=== PATIENT | female | born 1975 ===

== ENCOUNTER 2017-05-05 22:20 | Emergency (ER) | payer MEDICAID ==
[2017-05-05 23:00] VITALS: RESP 22
--- NOTE | 2017-05-05 23:01 | C.PDOC ---
History Of Present Illness 42 year old female presents to the ED c/o high blood pressure that she noticed at home associated with nose bleed. Patient denies headache, trauma, injury, fall, blurry vision, CP, SOB. Time Seen by Provider: 05/05/17 23:03 Chief Complaint (Nursing): High Blood Pressure History Per: Patient History/Exam Limitations: no limitations Onset/Duration Of Symptoms: Days Current Symptoms Are (Timing): Still Present Quality Of Symptoms: Asymptomatic Recent travel outside of the [place]: No Additional History Per: Patient Past Medical History Reviewed: Historical Data, Nursing Documentation, Vital Signs Vital Signs: Last Vital Signs Temp 98.1 F 05/05/17 22:29 Pulse 85 05/05/17 22:59 Resp 22 05/05/17 22:59 BP 129/87 05/05/17 22:59 Pulse Ox 98 05/05/17 23:05 - Medical History PMH: HTN Surgical History: No Surg Hx Family History: States: Unknown Family Hx - Social History Hx Alcohol Use: No Hx Substance Use: No - Immunization History Hx Tetanus Toxoid Vaccination: No Hx Influenza Vaccination: No Hx Pneumococcal Vaccination: No Review Of Systems Constitutional: Negative for: Fever, Chills ENT: Positive for: Nose Discharge Cardiovascular: Negative for: Chest Pain Respiratory: Negative for: Cough, Shortness of Breath Gastrointestinal: Negative for: Nausea, Vomiting, Abdominal Pain Skin: Negative for: Rash Neurological: Negative for: Weakness, Numbness, Headache Physical Exam - Physical Exam Appears: Non-toxic, No Acute Distress Skin: Normal Color, Warm, Dry Head: Atraumatic, Normacephalic Eye(s): bilateral: Normal Inspection Nose: No Discharge, No Epistaxis Oral Mucosa: Moist Neck: Normal ROM, Supple Chest: Symmetrical Cardiovascular: Rhythm Regular, No Murmur Respiratory: Normal Breath Sounds, No Rales, No Rhonchi, No Wheezing Gastrointestinal/Abdominal: Soft, No Tenderness, No Guarding, No Rebound Extremity: Normal ROM, No Tenderness, No Swelling Neurological/Psych: Oriented x3, Normal Speech Gait: Steady ED Course And Treatment - Laboratory Results Result Diagrams: 05/05/17 23:17 05/05/17 23:17 O2 Sat by Pulse Oximetry: 98 (On RA) Pulse Ox Interpretation: Normal Medical Decision Making Medical Decision Making: Impression: high blood pressure Plan: * Labs Disposition Counseled Patient/Family Regarding: Diagnosis - Disposition Referrals: [facility] [Outside] Disposition: HOME/ ROUTINE Disposition Time: 23:55 Condition: STABLE Instructions: Nosebleeds, High Blood Pressure in Adults, Low Salt Diet Forms: [facility] (Mohawk) - POA Present On Arrival: None - Clinical Impression Clinical Impression: Epistaxis not due to trauma, Hypertension - Scribe Statement The provider has reviewed the documentation as recorded by the Scribe Connor Castro All medical record entries made by the Scribe were at my direction and personally dictated by me. I have reviewed the chart and agree that the record accurately reflects my personal performance of the history, physical exam, medical decision making, and the department course for this patient. I have also personally directed, reviewed, and agree with the discharge instructions and disposition.
[2017-05-05 23:20] LABS: HEMOGLOBIN 13.1 g/dL (11.0-16.0); MEAN CELL VOLUME 88.3 fL (81.0-99.0); MEAN CORPUSCULAR HEMOGLOBIN 29.6 pg (27.0-31.0); MEAN CORPUSCULAR HGB CONC 33.5 g/dL (33.0-37.0); MEAN PLATELET VOLUME 9.9 fL (7.2-11.7); RBC 4.42 Mil/uL (3.80-5.20); RED CELL DISTRIBUTION WIDTH 13.4 % (11.5-14.5); WHITE BLOOD COUNT 8.6 K/uL (4.8-10.8)
[2017-05-05 23:28] LABS: PROTHROMBIN TIME 11.1 SECONDS (9.7-12.2)
[2017-05-05 23:32] LABS: ALB/GLOB RATIO 1.3 (1.0-2.1); ALBUMIN 3.9 g/dL (3.5-5.0); ALT/SGPT 24 U/L (9-52); AST/SGOT 19 U/L (14-36); BLOOD UREA NITROGEN 13 mg/dL (7-17); CALCIUM 8.7 mg/dl (8.6-10.4); GFR AFRICAN-AMERICAN > 60; GFR NON-AFRICAN AMERICAN > 60
[2017-05-06 00:11] VITALS: BP 134/89; PULSE 77; TEMP 97.9; O2SAT 100
== END 2017-05-06 00:11 | disposition home or self-care (01) ==
LOC: C.ER 22:20
DX: I10 Essential (primary) hypertension (principal); R04.0 Epistaxis

== ENCOUNTER 2017-07-14 16:44 | Emergency (ER) | payer MEDICAID ==
[2017-07-14 18:21] LABS: BASO % 0.1 % (0.0-2.0); EOS % 0.2 % (0.0-4.0); HEMOGLOBIN 14.1 g/dL (11.0-16.0); LYMPH # 1.1 K/uL (1.0-4.3); LYMPH % 13.6 % (20.0-40.0); MEAN CELL VOLUME 88.3 fL (81.0-99.0); MEAN CORPUSCULAR HEMOGLOBIN 30.1 pg (27.0-31.0); MEAN CORPUSCULAR HGB CONC 34.1 g/dL (33.0-37.0); MEAN PLATELET VOLUME 9.8 fL (7.2-11.7); MONO # 0.3 K/uL (0.0-0.8); MONO % 3.8 % (0.0-10.0); NEUT # 6.8 K/uL (1.8-7.0); NEUT % 82.3 % (50.0-75.0); NRBC % 0.1 % (0.0-2.0); RBC 4.69 Mil/uL (3.80-5.20); RED CELL DISTRIBUTION WIDTH 13.4 % (11.5-14.5); WHITE BLOOD COUNT 8.2 K/uL (4.8-10.8)
[2017-07-14 18:33] LABS: ALB/GLOB RATIO 1.2 (1.0-2.1); ALBUMIN 4.2 g/dL (3.5-5.0); ALT/SGPT 26 U/L (9-52); AST/SGOT 23 U/L (14-36); BLOOD UREA NITROGEN 11 mg/dL (7-17); GFR AFRICAN-AMERICAN > 60; GFR NON-AFRICAN AMERICAN > 60
[2017-07-14] MEDS ORDERED: Sodium Chloride 0.9% 1,000 ML IV ONE (19:13)
--- NOTE | 2017-07-14 19:14 | C.PDOC ---
History Of Present Illness 42 year old female presents to the ER with a complaint of abdominal pain, nausea , and vomiting since yesterday, associated with diarrhea today. Denies fever or chills. Chief Complaint (Nursing): Abdominal Pain History Per: Patient History/Exam Limitations: no limitations Onset/Duration Of Symptoms: Days Current Symptoms Are (Timing): Still Present Location Of Pain/Discomfort: Diffuse Radiation Of Pain To:: None Quality Of Discomfort: Unable To Describe Associated Symptoms: Nausea, Vomiting, Diarrhea. denies: Fever, Chills Exacerbating Factors: None Alleviating Factors: None Recent travel outside of the [place]: No Abnormal Vaginal Bleeding: No Past Medical History Reviewed: Historical Data, Nursing Documentation, Vital Signs Vital Signs: Last Vital Signs Temp 98 F 07/14/17 20:45 Pulse 78 07/14/17 20:45 Resp 18 07/14/17 20:45 BP 105/74 07/14/17 20:45 Pulse Ox 100 07/14/17 21:18 - Medical History PMH: HTN Family History: States: Unknown Family Hx - Social History Hx Alcohol Use: No Hx Substance Use: No - Immunization History Hx Tetanus Toxoid Vaccination: No Hx Influenza Vaccination: No Hx Pneumococcal Vaccination: No Review Of Systems Constitutional: Negative for: Fever, Chills Cardiovascular: Negative for: Chest Pain, Palpitations Respiratory: Negative for: Cough Gastrointestinal: Positive for: Nausea, Vomiting, Abdominal Pain, Diarrhea Physical Exam - Physical Exam Appears: Non-toxic Skin: Normal Color, Warm, Dry Head: Atraumatic, Normacephalic Eye(s): bilateral: Normal Inspection Oral Mucosa: Moist Chest: Symmetrical, No Tenderness Cardiovascular: Rhythm Regular Respiratory: Normal Breath Sounds, No Rales, No Rhonchi, No Wheezing Gastrointestinal/Abdominal: Soft, Tenderness (Diffuse), No Guarding, No Rebound Back: No CVA Tenderness Neurological/Psych: Oriented x3, Normal Speech ED Course And Treatment - Laboratory Results Result Diagrams: 07/14/17 18:14 07/14/17 18:14 O2 Sat by Pulse Oximetry: 100 (Room air) Pulse Ox Interpretation: Normal Progress Note: Blood work and urinalysis ordered. Bentyl, reglan, toradol, and IV fluids administered. Disposition Counseled Patient/Family Regarding: Diagnosis - Disposition Referrals: [facility] [Outside] Disposition: HOME/ ROUTINE Disposition Time: 21:17 Condition: STABLE Prescriptions: Dicyclomine [Dicyclomine HCl] 10 mg PO QID #14 cap Ondansetron ODT [Zofran ODT] 1 odt PO BID PRN #6 odt PRN Reason: Nausea/Vomiting Instructions: Acute Abdomen (Belly Pain), Nausea and Vomiting, Adult (DC) Forms: [facility] (Romanian), Gen Discharge Inst Armenian Print Language: BRITISH - POA Present On Arrival: None - Clinical Impression Clinical Impression: Abdominal pain, Nausea, Vomiting, Diarrhea, Enteritis - Scribe Statement The provider has reviewed the documentation as recorded by the Scribluisa Vieyra All medical record entries made by the Riveribluisa were at my direction and personally dictated by me. I have reviewed the chart and agree that the record accurately reflects my personal performance of the history, physical exam, medical decision making, and the department course for this patient. I have also personally directed, reviewed, and agree with the discharge instructions and disposition.
--- NOTE | 2017-07-14 19:15 | C.PDOC ---
Chief Complaint (Nursing): Abdominal Pain Past Medical History Vital Signs: Last Vital Signs Temp 98.2 F 07/14/17 17:05 Pulse 93 H 07/14/17 17:05 Resp 16 07/14/17 17:05 BP 135/85 07/14/17 17:05 Pulse Ox 100 07/14/17 17:05 - Medical History PMH: HTN Family History: States: Unknown Family Hx - Social History Hx Alcohol Use: No Hx Substance Use: No - Immunization History Hx Tetanus Toxoid Vaccination: No Hx Influenza Vaccination: No Hx Pneumococcal Vaccination: No ED Course And Treatment - Laboratory Results Result Diagrams: 07/14/17 18:14 07/14/17 18:14 O2 Sat by Pulse Oximetry: 100 Disposition - Disposition
[2017-07-14 19:35] VITALS: RESP 18
[2017-07-14 20:25] LABS: HCG,QUALITATIVE URINE NEGATIVE (NEGATIVE); SQUAMOUS EPITHIAL 1 /hpf (0-5); URINE BACTERIA RARE (<OCC); URINE BILIRUBIN NEGATIVE (NEGATIVE); URINE BLOOD NEGATIVE (NEGATIVE); URINE CLARITY Clear (Clear); URINE COLOR Yellow (YELLOW); URINE GLUCOSE (UA) NORMAL (Normal); URINE LEUKOCYTE ESTERASE NEG Leu/uL (Negative); URINE PROTEIN NEGATIVE (NEGATIVE); URINE UROBILINOGEN NORMAL mg/dL (0.2-1.0)
[2017-07-14 20:46] VITALS: BP 105/74; PULSE 78; TEMP 98
[2017-07-14 21:18] VITALS: O2SAT 100
== END 2017-07-14 21:32 | disposition home or self-care (01) ==
LOC: C.ER 16:44
DX: K52.9 Noninfective gastroenteritis and colitis, unspecified (principal); R10.9 Unspecified abdominal pain; R11.2 Nausea with vomiting, unspecified
CPT/HCPCS: 80053; 81001; 83690; 84703; 85025; 87086; 96372; 96374; 96375; 99284; J0500; J1885; J2765; J7030

== ENCOUNTER 2018-05-23 10:41 | Emergency (ER) | payer MEDICAID ==
[2018-05-23 11:57] LABS: HCG,QUALITATIVE URINE NEGATIVE (NEGATIVE)
[2018-05-23 11:58] LABS: SQUAMOUS EPITHIAL 4 /hpf (0-5); URINE BILIRUBIN NEGATIVE (NEGATIVE); URINE BLOOD NEGATIVE (NEGATIVE); URINE CLARITY Hazy (Clear); URINE COLOR Yellow (YELLOW); URINE GLUCOSE (UA) NORMAL (Normal); URINE LEUKOCYTE ESTERASE NEG Leu/uL (Negative); URINE PROTEIN NEGATIVE (NEGATIVE); URINE UROBILINOGEN NORMAL mg/dL (0.2-1.0)
[2018-05-23 12:45] LABS: BASO % 0.3 % (0.0-2.0); EOS % 0.6 % (0.0-4.0); HEMOGLOBIN 13.9 g/dL (11.0-16.0); LYMPH # 2.3 K/uL (1.0-4.3); LYMPH % 35.3 % (20.0-40.0); MEAN CELL VOLUME 90.1 fL (81.0-99.0); MEAN CORPUSCULAR HEMOGLOBIN 30.2 pg (27.0-31.0); MEAN CORPUSCULAR HGB CONC 33.5 g/dL (33.0-37.0); MEAN PLATELET VOLUME 9.7 fL (7.2-11.7); MONO # 0.5 K/uL (0.0-0.8); MONO % 7.8 % (0.0-10.0); NEUT # 3.7 K/uL (1.8-7.0); RBC 4.61 Mil/uL (3.80-5.20); RED CELL DISTRIBUTION WIDTH 13.6 % (11.5-14.5); WHITE BLOOD COUNT 6.6 K/uL (4.8-10.8)
[2018-05-23 13:03] LABS: ALB/GLOB RATIO 1.5 (1.0-2.1); ALBUMIN 4.3 g/dL (3.5-5.0); ALT/SGPT 22 U/L (9-52); AST/SGOT 31 U/L (14-36); BLOOD UREA NITROGEN 13 mg/dL (7-17); CALCIUM 9.7 mg/dl (8.6-10.4); GFR NON-AFRICAN AMERICAN > 60
--- NOTE | 2018-05-23 13:35 | C.PDOC ---
History Of Present Illness 43 y/o female c/o bilateral flank pain and sts she needs to strain to urinate for several weeks. pt had renal us on 04/30 showing bilateral kidney stones. pt taking tramadol with no improvement in pain. no fever or chills. Time Seen by Provider: 05/23/18 12:26 Chief Complaint (Nursing): Female Genitourinary History Per: Patient History/Exam Limitations: no limitations Onset/Duration Of Symptoms: Days (several weeks) Current Symptoms Are (Timing): Still Present Quality Of Discomfort: "Pain" Recent travel outside of the [place]: No Additional History Per: Patient Past Medical History Reviewed: Historical Data, Nursing Documentation, Vital Signs Vital Signs: Last Vital Signs Temp 98.3 F 05/23/18 10:49 Pulse 85 05/23/18 10:49 Resp 18 05/23/18 10:49 BP 124/82 05/23/18 10:49 Pulse Ox 100 05/23/18 10:49 - Medical History PMH: HTN Surgical History: No Surg Hx Family History: States: Unknown Family Hx - Social History Hx Alcohol Use: No Hx Substance Use: No - Immunization History Hx Tetanus Toxoid Vaccination: No Hx Influenza Vaccination: No Hx Pneumococcal Vaccination: No Review Of Systems Constitutional: Negative for: Fever, Chills Cardiovascular: Negative for: Chest Pain Respiratory: Negative for: Shortness of Breath Gastrointestinal: Negative for: Abdominal Pain Genitourinary: Positive for: Other (straining to urinate) Musculoskeletal: Positive for: Back Pain (bilateral flank pain) Physical Exam - Physical Exam Appears: Non-toxic, No Acute Distress Skin: No Rash Head: Atraumatic, Normacephalic Eye(s): bilateral: PERRL, EOMI Neck: Supple Chest: No Tenderness Cardiovascular: Rhythm Regular, No Murmur Respiratory: No Rales, No Rhonchi, No Wheezing, Other (Clear to auscultation bilaterally) Gastrointestinal/Abdominal: Soft, No Tenderness, No Distention, Other (Normoactive bowel sounds) Back: No CVA Tenderness Extremity: No Calf Tenderness, No Swelling Neurological/Psych: Oriented x3, Normal Speech, Normal Cognition ED Course And Treatment - Laboratory Results Result Diagrams: 05/23/18 12:40 05/23/18 12:40 Lab Results: Total Bilirubin 0.5 mg/dL (0.2-1.3) 05/23/18 12:40 AST 31 U/L (14-36) 05/23/18 12:40 ALT 22 U/L (9-52) 05/23/18 12:40 Alkaline Phosphatase 86 U/L (38-126) 05/23/18 12:40 Total Protein 7.1 g/dL (6.3-8.3) 05/23/18 12:40 Albumin 4.3 g/dL (3.5-5.0) 05/23/18 12:40 Globulin 2.8 gm/dL (2.2-3.9) 05/23/18 12:40 Albumin/Globulin Ratio 1.5 (1.0-2.1) 05/23/18 12:40 Urine Color Yellow (YELLOW) 05/23/18 11:49 Urine Clarity Hazy (Clear) 05/23/18 11:49 Urine pH 5.0 (5.0-8.0) 05/23/18 11:49 Ur Specific [place] 1.024 (1.003-1.030) 05/23/18 11:49 Urine Protein Negative mg/dL (NEGATIVE) 05/23/18 11:49 Urine Glucose (UA) Normal mg/dL (Normal) 05/23/18 11:49 Urine Ketones Negative mg/dL (NEGATIVE) 05/23/18 11:49 Urine Blood Negative (NEGATIVE) 05/23/18 11:49 Urine Nitrate Negative (NEGATIVE) 05/23/18 11:49 Urine Bilirubin Negative (NEGATIVE) 05/23/18 11:49 Urine Urobilinogen Normal mg/dL (0.2-1.0) 05/23/18 11:49 Ur Leukocyte Esterase Neg [place]/uL (Negative) 05/23/18 11:49 Urine WBC (Auto) 3 /hpf (0-5) 05/23/18 11:49 Urine RBC (Auto) 1 /hpf (0-3) 05/23/18 11:49 Ur Squamous Epith Cells 4 /hpf (0-5) 05/23/18 11:49 Urine HCG, Qual Negative (NEGATIVE) 05/23/18 11:49 Urine HCG, Qual Negative (NEGATIVE) 05/23/18 11:49 O2 Sat by Pulse Oximetry: 100 (on RA) Pulse Ox Interpretation: Normal - CT Scan/US CAT Other Rad Studies (CT/US): Read By Radiologist, Radiology Report Reviewed CT/US Interpretation: IMPRESSION: 1. No radiodense urolithiasis or obstructive uropathy bilaterally. Gas seen in the nondependent urinary bladder. Consider potential recent instrumentation though no other sign of potential cystitis is appreciable. Further clinical correlation advised. 2. Hepatic granuloma right lobe liver. Two small lucencies are seen at the dome liver too small to characterize. Lack images contrast limits evaluation of the abdominal viscera. 3. Tubular cystic structure in the right adnexal part measuring 4.9 x 2.4 cm suggest hydrosalpinx. Follow-up transvaginal pelvic ultrasonography recommended. US Transvaginal Other Rad Studies (CT/US): Read By Radiologist, Radiology Report Reviewed CT/US Interpretation: IMPRESSION: The uterus and left ovary are not visualized, by history surgically resected. Right ovary measures approximately 3.6 x 1.7 x 2.9 cm indications evidence of 2.0 x 1.3 x 1.3 cm follicle/cyst. Lateral to the right ovary elongated anechoic tubular structure consistent with hydrosalpinx. Medical Decision Making Medical Decision Making: Plan: CAT A&P US Transvaginal Labs Urinalysis Given pt's renal us report showing bilateral kidney stones, ct abdomen/pelvis stone protocol ordered. no stones seen on ct scan. pt reports left oophorectomy and hysterectomy (cyst and fibroid). ? hydrosalpinx shown on ct; transvaginal us done; hydrosalpinx noted. discussed with Dr Hernandez, recommends f/u with gas well pumper and pain meds. Disposition Counseled Patient/Family Regarding: Studies Performed, Diagnosis, Need For Followup, Rx Given - [facility] [Outside] Disposition: HOME/ ROUTINE Disposition Time: 17:24 Condition: GOOD Additional Instructions: [place] ibuprofeno para el dolor plvico derecho. Comunquese con un gineclogo o en la [place] para steven evaluacin adicional del hidrosalpinx. Take ibuprofen for right pelvic pain. FOllow up with a furnace tapper or in [facility] for further evaluation of hydrosalpinx. Prescriptions: Ibuprofen [Motrin] 600 mg PO TID #30 tab Forms: [facility] (Wolof), Gen Discharge Inst Upper Sorbian, [facility] [place] ([place] Sorbian) Print Language: ARGENTINE - Clinical Impression Clinical Impression: Hydrosalpinx - PA / CORPORATE HUMAN RESOURCES MANAGER / Resident Statement MD/DO has examined the patient and agrees with the treatment plan. - Scribe Statement The provider has reviewed the documentation as recorded by the Riveribluisa Baugh All medical record entries made by the Riveribluisa were at my direction and personally dictated by me. I have reviewed the chart and agree that the record accurately reflects my personal performance of the history, physical exam, medical decision making, and the department course for this patient. I have also personally directed, reviewed, and agree with the discharge instructions and disposition.
[2018-05-23 13:46] VITALS: RESP 16
--- NOTE | 2018-05-23 13:59 | CT ---
Date of service: 05/23/2018 PROCEDURE: CT Abdomen and Pelvis without intravenous contrast HISTORY: bilateral flank pain, hx stones COMPARISON: None. TECHNIQUE: Helical CT of the abdomen and pelvis was performed without oral or intravenous contrast as per referring physician request. Coronal and sagittal reformats were generated.. Contrast dose: None Radiation dose: Total exam DLP = 538.37 mGy-cm. This CT exam was performed using one or more of the following dose reduction techniques: Automated exposure control, adjustment of the mA and/or kV according to patient size, and/or use of iterative reconstruction technique. FINDINGS: LOWER THORAX: Unremarkable. LIVER: Tiny 5 mm pattern granuloma seen the right lobe medially. There are a few tiny lucencies identified at the dome liver too small to characterize GALLBLADDER AND BILE DUCTS: Unremarkable. PANCREAS: Unremarkable. No gross lesion or ductal dilatation. SPLEEN: Unremarkable. ADRENALS: Unremarkable. No mass. KIDNEYS AND URETERS: No radiodense urolithiasis, perinephric fluid collection or obstructive uropathy is appreciate bilaterally. The bilateral ureters appear normal caliber overall. No suspicious renal contour changes to suggest underlying mass. The lack of intravenous contrast limits evaluation of the renal parenchyma bilaterally. VASCULATURE: Unremarkable. No aortic aneurysm. No aortic atherosclerotic calcification or mural plaque present. BOWEL: Moderate fecal loading noted throughout the colon.. No obstruction. No gross mural thickening. APPENDIX: Unremarkable. Normal appendix. PERITONEUM: Unremarkable. No free fluid. No free air. LYMPH NODES: Unremarkable. No enlarged lymph nodes. BLADDER: Decompressed. No radiodense urolithiasis. Trace gas seen in the nondependent portion. Correlate as to whether there has been recent instrumentation. No prominent mural thickening. REPRODUCTIVE: Dilated tubular structure seen in the right adnexa overlying and medial to the right ovary measuring at least 4.9 x 2.4 cm suggestive of hydrosalpinx without local reactive change. Consider follow-up transvaginal pelvic ultrasound for added characterization. BONES: No acute fracture. OTHER FINDINGS: None. IMPRESSION: 1. No radiodense urolithiasis or obstructive uropathy bilaterally. Gas seen in the nondependent urinary bladder. Consider potential recent instrumentation though no other sign of potential cystitis is appreciable. Further clinical correlation advised. 2. Hepatic granuloma right lobe liver. Two small lucencies are seen at the dome liver too small to characterize. Lack images contrast limits evaluation of the abdominal viscera. 3. Tubular cystic structure in the right adnexal part measuring 4.9 x 2.4 cm suggest hydrosalpinx. Follow-up transvaginal pelvic ultrasonography recommended.
--- NOTE | 2018-05-23 17:11 | US ---
Date of service: 05/23/2018 HISTORY: eval for hydrosalpinx COMPARISON: No prior ultrasound available for comparison. CT of the abdomen and pelvis without contrast performed 05/23/18 TECHNIQUE: Real-time transabdominal pelvic ultrasound was performed. In addition a transvaginal pelvic ultrasound was necessary to better depict pelvic anatomy. FINDINGS: The uterus and left ovary are not visualized, by history surgically resected. Right ovary measures approximately 3.6 x 1.7 x 2.9 cm indications evidence of 2.0 x 1.3 x 1.3 cm follicle/cyst. Lateral to the right ovary elongated anechoic tubular structure consistent with hydrosalpinx. No pelvic free fluid identified. IMPRESSION: The uterus and left ovary are not visualized, by history surgically resected. Right ovary measures approximately 3.6 x 1.7 x 2.9 cm indications evidence of 2.0 x 1.3 x 1.3 cm follicle/cyst. Lateral to the right ovary elongated anechoic tubular structure consistent with hydrosalpinx.
[2018-05-23 17:57] VITALS: BP 122/67; PULSE 74; TEMP 98.1
[2018-05-24 10:42] VITALS: O2SAT 100
== END 2018-05-23 17:50 | disposition home or self-care (01) ==
LOC: C.ER 10:41
DX: N70.11 Chronic salpingitis (principal)

== ENCOUNTER 2018-07-03 15:31 | Emergency (ER) | payer MEDICAID ==
[2018-07-03 15:46] VITALS: BMI 28.9
[2018-07-03 15:49] VITALS: TEMP 98.7; O2SAT 100
--- NOTE | 2018-07-03 16:29 | C.PDOC ---
History Of Present Illness 43 year old female presents to ED with complaint of palpitations and shakiness for the past week. Patient states that she was prescribed zoloft for her hypertension by and has been taking it for the past month. Patient states that she typically takes zestril, ambien, neurotin, fioricet, and lipitor. Patient has a PMHx of hypertension, migraines, and hyperlipidemia. She notes some pain to her neck and temples. She has a PSHx of hysterectomy. She denies vision changes, SOB, nausea, vomiting, and chest pain. Time Seen by Provider: 07/03/18 15:47 Chief Complaint (Nursing): High Blood Pressure History Per: Patient History/Exam Limitations: no limitations Onset/Duration Of Symptoms: Days (7) Current Symptoms Are (Timing): Still Present Associated Symptoms: denies: Chest Pain, Dyspnea, Blurred Vision Exacerbating Factor(s): Pos: Recent Change In Medication Past Medical History Reviewed: Historical Data, Nursing Documentation, Vital Signs Vital Signs: Last Vital Signs Temp 98.7 F 07/03/18 15:46 Pulse 122 H 07/03/18 15:46 Resp 18 07/03/18 15:46 BP 169/100 H 07/03/18 15:46 Pulse Ox 100 07/03/18 15:46 Primary Care Provider: Jameel Wright - Medical History PMH: HTN, Hypercholesterolemia, Migraine Other Surgeries: hysterectomy Family History: States: Unknown Family Hx - Social History Hx Alcohol Use: No Hx Substance Use: No - Immunization History Hx Tetanus Toxoid Vaccination: No Hx Influenza Vaccination: No Hx Pneumococcal Vaccination: No Review Of Systems Constitutional: Positive for: Other (shakiness). Negative for: Fever, Chills, Weakness Eyes: Negative for: Vision Change Cardiovascular: Positive for: Palpitations. Negative for: Chest Pain Respiratory: Negative for: Shortness of Breath Gastrointestinal: Negative for: Nausea, Vomiting Musculoskeletal: Positive for: Neck Pain (mild pain) Neurological: Positive for: Headache (pain to her temples) Physical Exam - Physical Exam Appears: Non-toxic, No Acute Distress Skin: Normal Color, Warm, Dry Head: Atraumatic, Normacephalic Eye(s): bilateral: Normal Inspection (Conjunctiva clear), PERRL, EOMI Oral Mucosa: Moist Neck: Normal ROM, Supple Chest: Symmetrical Cardiovascular: Rhythm Regular, Other (tachycardic) Respiratory: No Rales, No Rhonchi, No Wheezing, Other (Good air movement, Lungs CTA bilaterally) Gastrointestinal/Abdominal: Soft, No Tenderness, No Distention, No Guarding, No Rebound Extremity: Capillary Refill (<2 seconds) Extremity: Bilateral: Atraumatic, Normal Color And Temperature, Normal ROM, Other (no cyanosis or edema) Pulses: Left Dorsalis Pedis: Normal, Right Dorsalis Pedis: Normal Neurological/Psych: Oriented x3, Normal Speech, Normal Cognition, Normal Cranial Nerves, Normal Motor, Normal Sensation Gait: Steady ED Course And Treatment ECG: Interpreted By Me, Viewed By Me ECG Rhythm: Sinus Tachycardia ECG Interpretation: Normal Interpretation Of ECG: Right axis deviation. No ST elevations or depressions. Rate From EC O2 Sat by Pulse Oximetry: 100 (in RA) Pulse Ox Interpretation: Normal Medical Decision Making Medical Decision Making: Impression: 43 year old female presents to ED with complaint of palpitations and shakiness for the past week. Initial Plan: Zestril repeat BP: 139/90 Patient to be given prescription for zestril and f/u with . Disposition Counseled Patient/Family Regarding: Diagnosis, Need For Followup - Disposition Referrals: Jameel Wright MD [Staff Provider] - Disposition: HOME/ ROUTINE Disposition Time: 17:15 Condition: IMPROVED Prescriptions: Lisinopril [Zestril] 10 mg PO DAILY #30 tab Instructions: High Blood Pressure (DC) Forms: [facility] (Anguillan), Gen Discharge Inst [place]guillan Print Language: MOZAMBICAN - POA Present On Arrival: None - Clinical Impression Clinical Impression: Hypertension - Scribe Statement The provider has reviewed the documentation as recorded by the Scribe (Moni Mantilla) All medical record entries made by the Scribe were at my direction and personally dictated by me. I have reviewed the chart and agree that the record accurately reflects my personal performance of the history, physical exam, medical decision making, and the department course for this patient. I have also personally directed, reviewed, and agree with the discharge instructions and disposition.
[2018-07-03 16:59] VITALS: BP 139/90; PULSE 85; RESP 20
--- NOTE | 2018-07-04 15:27 | CARD ---
APPROVED REPORT Date of service: 07/03/2018 EKG Measurement Heart [id number] <Conclusion> Sinus tachycardia Rightward axis Borderline ECG
== END 2018-07-03 17:21 | disposition home or self-care (01) ==
LOC: C.ER 15:31
DX: I10 Essential (primary) hypertension (principal); E78.00 Pure hypercholesterolemia, unspecified

== ENCOUNTER 2018-07-09 18:05 | Emergency (ER) | payer MEDICAID ==
[2018-07-09 18:06] VITALS: BMI 28.9
[2018-07-09 18:16] VITALS: RESP 16; O2SAT 98
--- NOTE | 2018-07-09 19:07 | C.PDOC ---
History Of Present Illness 43 year old female brought in via transport presents to ED with complaint of epigastric pain, nausea, vomiting, and diarrhea for the past 3 days. Patient saw her PMD for the same symptoms and was given zofran but states " I feel like I have to take it more often because it's not as effective." Patient denies history of PUD and fever. Patient was last seen on 07/03 for palpitations and shakiness for the past week. She has a PSHx of hysterectomy. Contrary to triage there was no reported GI symptoms during ER visit on 07/03. She denies fever, chills,and urinary symptoms. VIA TRANS EPIG PAIN, NVD X 3 DAYS. SAW PMD FOR SAME, GIVEN ZOFRAN BUT "I FEEL LIKE I HAVE TO TAKE IT MORE OFTEN BC IT'S NOT EFFECTIVE". DENIES HO PUD, FEVER. SEEN 07/03 FOR palpitations and shakiness for the past week.She has a PSHx of hysterectomy. CONTRARY TO TRIAGE NO REPORTED GI SX DURING ER VISIT 07/03 EXAM NONTOXIC HEENT ANICTERIC ABD +MILD EPIG TEND SOFT NO R/G NO TENTING REMAINDER NEG MDM EPIG PAIN, NVD. AGE VS GASTRITIS. NO SIGNS SURG ABD. LABS, IVF, GI RX Time Seen by Provider: 07/09/18 19:04 Chief Complaint (Nursing): GI Problem History Per: Patient History/Exam Limitations: no limitations Onset/Duration Of Symptoms: Days (3) Current Symptoms Are (Timing): Still Present Radiation Of Pain To:: None Associated Symptoms: Nausea, Vomiting, Diarrhea. denies: Fever, Chills, Urinary Symptoms Abnormal Vaginal Bleeding: No Past Medical History Reviewed: Historical Data, Nursing Documentation, Vital Signs Vital Signs: Last Vital Signs Temp 98.6 F 07/09/18 18:12 Pulse 87 07/09/18 18:12 Resp 16 07/09/18 18:12 BP 118/84 07/09/18 18:12 Pulse Ox 98 07/09/18 18:12 Primary Care Provider: Jameel Wright - Medical History PMH: HTN, Hypercholesterolemia, Migraine Other Surgeries: hysterectomy Family History: States: Unknown Family Hx - Social History Hx Alcohol Use: No Hx Substance Use: No - Immunization History Hx Tetanus Toxoid Vaccination: No Hx Influenza Vaccination: No Hx Pneumococcal Vaccination: No Review Of Systems Except As Marked, All Systems Reviewed And Found Negative. Gastrointestinal: Positive for: Nausea, Vomiting, Abdominal Pain (epigastric), Diarrhea Physical Exam - Physical Exam Appears: Non-toxic, No Acute Distress Skin: Normal Color, Warm, Dry, No Other (tenting) Head: Atraumatic, Normacephalic Eye(s): bilateral: Normal Inspection (anicteric), PERRL, EOMI Oral Mucosa: Moist Neck: Normal ROM, Supple Chest: Symmetrical, No Deformity Cardiovascular: Rhythm Regular, No Murmur Respiratory: No Accessory Muscle Use, No Rales, No Rhonchi, No Wheezing, Other (NARD) Gastrointestinal/Abdominal: Soft, Tenderness (mild epigastric tenderness), No Distention, No Guarding, No Rebound Extremity: Capillary Refill (<2 seconds) Extremity: Bilateral: Atraumatic, Normal Color And Temperature, Normal ROM Pulses: Left Radial: Normal, Right Radial: Normal Neurological/Psych: Oriented x3, Normal Speech, Normal Cognition, Normal Motor, Normal Sensation Gait: Steady ED Course And Treatment - Laboratory Results Result Diagrams: 07/09/18 20:24 07/09/18 20:24 Urine POC: Negative O2 Sat by Pulse Oximetry: 98 (in RA) Pulse Ox Interpretation: Normal Progress - Re-Evaluation Re-evaluation Note: 07/09/18 21:44 NOTIFIED BY RN MICHAEL ROSENBERG PRIOR TO RECEIVING DC INSTRUCTIONS - Data Reviewed Data Reviewed: Old records Medical Decision Making Medical Decision Making: Epigastric pain with nausea, vomiting, and diarrhea. Age vs Gastritis No signs of surgery to the abdomen. Labs, IV fluids, and GI prescription given to patient. Disposition Counseled Patient/Family Regarding: Studies Performed, Diagnosis, Need For Followup, Rx Given - Disposition Referrals: YOUR,PMD [Other] Disposition: HOME/ ROUTINE Disposition Time: 21:41 Condition: IMPROVED Prescriptions: Famotidine [Pepcid AC] 10 mg PO QN #30 tablet Lansoprazole [Prevacid] 15 mg PO DAILY #30 ecc Metoclopramide [Reglan] 1 tab PO TID PRN #25 tab PRN Reason: Nausea/Vomiting Instructions: Acute Abdomen (Belly Pain), Adult (DC), Gastritis (DC) Forms: [employer] (Khmer) Print Language: MOZAMBICAN - Clinical Impression Clinical Impression: Abdominal pain - Scribe Statement The provider has reviewed the documentation as recorded by the Scribe (Moni Mantilla) All medical record entries made by the Scribe were at my direction and pers onally dictated by me. I have reviewed the chart and agree that the record accurately reflects my personal performance of the history, physical exam, medical decision making, and the department course for this patient. I have also personally directed, reviewed, and agree with the discharge instructions and disposition.
[2018-07-09] MEDS ORDERED: Aluminum Hydroxide/Magnesium Hydroxide Susp (30 mL) PO STA (20:02)
[2018-07-09] MEDS ORDERED: Sodium Chloride 0.9% 1,000 ML IV ONE (20:02)
[2018-07-09] MEDS ORDERED: Belladonna-Phenobarbital PO STA (20:02)
[2018-07-09] MEDS ORDERED: Aluminum Hydroxide/Magnesium Hydroxide Susp (30 mL) ONE (20:23)
[2018-07-09] MEDS ORDERED: Belladonna-Phenobarbital ONE (20:23)
[2018-07-09] MEDS ORDERED: Sodium Chloride 0.9% 1,000 ML ONE (20:24)
[2018-07-09 20:28] LABS: BASO % 0.5 % (0.0-2.0); EOS % 0.6 % (0.0-4.0); HEMOGLOBIN 14.1 g/dL (11.0-16.0); LYMPH # 3.2 K/uL (1.0-4.3); LYMPH % 40.9 % (20.0-40.0); MEAN CELL VOLUME 88.6 fL (81.0-99.0); MEAN CORPUSCULAR HEMOGLOBIN 30.9 pg (27.0-31.0); MEAN CORPUSCULAR HGB CONC 34.9 g/dL (33.0-37.0); MEAN PLATELET VOLUME 9.6 fL (7.2-11.7); MONO # 0.6 K/uL (0.0-0.8); MONO % 8.1 % (0.0-10.0); NEUT # 3.9 K/uL (1.8-7.0); NEUT % 49.9 % (50.0-75.0); NRBC % 0.1 % (0.0-2.0); RBC 4.55 Mil/uL (3.80-5.20); RED CELL DISTRIBUTION WIDTH 13.3 % (11.5-14.5); WHITE BLOOD COUNT 7.8 K/uL (4.8-10.8)
[2018-07-09 20:41] LABS: ALB/GLOB RATIO 1.3 (1.0-2.1); ALBUMIN 4.7 g/dL (3.5-5.0); ALT/SGPT 18 U/L (9-52); AST/SGOT 42 U/L (14-36); BLOOD UREA NITROGEN 7 mg/dL (7-17); CALCIUM 9.4 mg/dl (8.6-10.4); GFR NON-AFRICAN AMERICAN > 60; LIPASE 22 U/L (23-300)
[2018-07-09 21:11] VITALS: BP 144/83; PULSE 81; TEMP 98.4
== END 2018-07-09 21:40 | disposition home or self-care (01) ==
LOC: C.ER 18:05
DX: R10.13 Epigastric pain (principal)
CPT/HCPCS: 80053; 81025; 83690; 85025; 96374; 96375; 99283; C9113; J2765; J7030